=== PATIENT | male | born 1950 | race Caucasian/White ===

== ENCOUNTER → 2018-06-06 | Outpatient (CLI) | payer OTHER ==
[~2018-06-06] MED LIST: ALLEGRA ALLERG180 MG; ASA5UEC; CIPRO500 MG/5 M PO; COMBIGAN EYE DR10 ML; FLAGYL500 MG PO; FLONASE 0.05%50 MCG; LISINOPRIL-HCT1 EAC2; LUMIGAN2.5 M1; MAGOX 400400 MG PO; MULTIVITAMINS1 EAC7; OMEGA-31000 M1; SYMBICORT160 MCG/4.; ZETIA10 MG
== END ==
LOC: M.ULTRA 05-26 13:37 → M.RAD 06-05 08:30 → M.ULTRA 06:54
DX: M41.84 Other forms of scoliosis, thoracic region (principal); K76.0 Fatty (change of) liver, not elsewhere classified; N20.0 Calculus of kidney; R94.5 Abnormal results of liver function studies; R10.9 Unspecified abdominal pain; R10.11 Right upper quadrant pain; M54.6 Pain in thoracic spine

== ENCOUNTER → 2018-06-19 | Outpatient (CLI) | payer OTHER ==
[2018-06-19 07:17] LABS: CREATININE 0.9 mg/dL (0.6-1.3)
== END ==
LOC: M.LAB 06:57 → M.CT 08:00
PROVIDERS: Internal Medicine
DX: N28.1 Cyst of kidney, acquired (principal); D17.79 Benign lipomatous neoplasm of other sites; Z85.46 Personal history of malignant neoplasm of prostate; Z85.828 Personal history of other malignant neoplasm of skin